=== PATIENT | female | born 1970 | race Caucasian/White ===

== ENCOUNTER 2016-12-13 11:50 | Emergency (ER) | payer OTHER ==
[~2016-12-13] VITALS: Ht 154.9 cm; Wt 61.2 kg
[~2016-12-13 11:50] MED LIST: CIPRO500 MG PO; COMPAZINE10 MG PO; IRON250 MG PO; NKHM; PERCOCET 325 MG1 TA2 PO; ZITHROMAX Z PA250 MG PO
[2016-12-13 12:23] LABS: BASO # 0.1 10*3/uL (0.0-0.1); BASO % 0.7 % (0.0-1.0); EOS # 0.3 10*3/uL (0.0-0.4); EOS % 2.7 % (1.0-4.0); HEMATOCRIT 40.2 % (37.0-47.0); HEMOGLOBIN 13.6 g/dl (12.0-16.0); LYMPH # 4.1 10*3/uL (1.3-4.4); LYMPH % 39.2 % (27.0-41.0); MEAN CELL VOLUME 90.7 fl (81.0-99.0); MEAN CORPUSCULAR HGB 30.7 pg (27.0-31.0); MEAN CORPUSCULAR HGB CONC 33.8 g/dl (33.0-37.0); MONO # 0.6 10*3/uL (0.1-1.0); MONO % 5.2 % (3.0-9.0); NEUT # 5.5 10*3/uL (2.3-7.9); PLATELET COUNT AUTOMATED 289 10*3/uL (130-400); RED BLOOD COUNT 4.43 10*6/uL (4.10-5.10); RED CELL DISTRI WIDTH 12.8 % (0-14.5); WHITE BLOOD COUNT 10.6 10*3/uL (4.8-10.8)
[2016-12-13 12:30] LABS: PROTHROMBIN TIME 10.4 SECONDS (9.0-12.4)
[2016-12-13 12:37] LABS: ALBUMIN 3.2 gm/dl (3.1-4.5); ALKALINE PHOSPHATASE 67 U/L (45-117); BILIRUBIN, TOTAL 0.2 mg/dl (0.2-1.0); BUN 12 mg/dl (7-24); C-REACTIVE PROTEIN 1.76 MG/DL (0-0.3); CARBON DIOXIDE 26 mmol/L (21-32); CHLORIDE 107 mmol/L (98-107); CKMB 0.6 ng/ml (0.5-3.6); CPK 68 U/L (26-192); EST GLOM FILT AFRICAN AMERICAN > 60 ml/min; GLUCOSE 89 mg/dL (65-99); MAGNESIUM 2.2 mg/dL (1.5-2.1); POTASSIUM 3.9 mmol/L (3.5-5.1); SGOT/AST 19 IU/L (3-35); SGPT/ALT 14 U/L (12-78); SODIUM 142 mmol/L (136-145); TOTAL PROTEIN 7.5 gm/dL (6.4-8.2); TROPONIN I < 0.015 ng/ml (<0.045)
[2016-12-13 12:44] LABS: BILIRUBIN NEGATIVE (NEGATIVE); BLOOD 1+ (NEGATIVE); CLARITY SL CLOUDY (CLEAR); COLOR YELLOW (YELLOW); GLUCOSE NEGATIVE (NEGATIVE); KETONE NEGATIVE (NEGATIVE); LEUKO ESTERASE NEGATIVE (NEGATIVE); NITRITE NEGATIVE (NEGATIVE); PROTEIN NEGATIVE (NEGATIVE); SPECIFIC GRAVITY 1.015 (1.005-1.030); UROBILINOGEN 0.2 E.U./dl (0.2-1.0)
[2016-12-13 12:52] LABS: BACTERIA 1+; EPITHELIAL CELLS 16-20; URINE REFLEX COMMENT YES (NO); WBC 0-2 wbc/hpf (0-5)
[2016-12-13 13:24] VITALS: BP 114/68
[2016-12-13] MEDS ORDERED: IBUPROFEN600 MG PO (14:47)
[2016-12-13] MEDS ORDERED: MECLIZINE HCL25 M2 PO (14:47)
== END 2016-12-13 14:53 | disposition home or self-care (01) ==
LOC: ED 11:50
PROVIDERS: Emergency Medicine
DX: R42 Dizziness and giddiness (principal); R51 Headache; F17.200 Nicotine dependence, unspecified, uncomplicated

== ENCOUNTER 2021-08-31 14:46 | Emergency (ER) | payer OTHER ==
[~2021-08-31 14:46] MED LIST changes: +IBUPROFEN600 MG PO; +MECLIZINE HCL25 M2 PO
[2021-08-31 15:27] VITALS: BP 133/75
[2021-08-31] MEDS ORDERED: PREDNISONE10 MG PO (18:28)
[2021-08-31] MEDS ORDERED: OMNICEF300 MG PO (18:31)
== END 2021-08-31 18:36 | disposition home or self-care (01) ==
LOC: ED 14:46
DX: J30.81 Allergic rhinitis due to animal (cat) (dog) hair and dander (principal); R21 Rash and other nonspecific skin eruption; Z88.2 Allergy status to sulfonamides; Z79.899 Other long term (current) drug therapy; Z98.890 Other specified postprocedural states; Z90.710 Acquired absence of both cervix and uterus